=== PATIENT | male | born 1995 | race Two or more races ===

== ENCOUNTER 2021-05-24 00:34 | Emergency (ER) | payer SELFPAY ==
[~2021-05-24] VITALS: Ht 165.1 cm; Wt 59.0 kg
[2021-05-24 01:02] VITALS: BP 107/48
--- NOTE | 2021-05-24 02:48 | NUR ---
CALLED PT FOR BED ASSIGNMENT. NO ANSWER
--- NOTE | 2021-05-24 03:11 | NUR ---
CALLED PT TO ASSIGN A BED, NO RESPONSE
== END 2021-05-24 03:13 | disposition left against medical advice (07) ==
LOC: ER 00:36
DX: Z53.21 Procedure and treatment not carried out due to patient leaving prior to being seen by health care provider (principal); M79.672 Pain in left foot